=== PATIENT | female | born 1990 | race Caucasian/White ===

== ENCOUNTER 2018-02-25 16:57 | Outpatient (CLI) | payer MEDICAID ==
[2018-02-25 18:13] LABS: ADD UMIC YES; UR ASCORBIC ACID NEGATIVE (NEGATIVE); UR BILIRUBIN (Dip) NEGATIVE (NEGATIVE); UR BLOOD (Dip) 1+ mg/dL (NEGATIVE); UR CLARITY CLEAR (CLEAR); UR COLOR STRAW (YELLOW); UR GLUCOSE (Dip) NEGATIVE (NEGATIVE); UR KETONES (Dip) NEGATIVE (NEGATIVE); UR LEUKOCYTE ESTERASE (Dip) NEGATIVE Leu/ul (NEGATIVE); UR NITRITE (Dip) NEGATIVE (NEGATIVE); UR RBC 0 /HPF (0-5); UR SPECIFIC GRAVITY (Dip) 1.008 (1.003-1.030); UR TOTAL PROTEIN (Dip) NEGATIVE (NEGATIVE); UR UROBILINOGEN (Dip) NEGATIVE (NEGATIVE); UR WBC 0 /HPF (0-5)
== END 2018-02-25 20:05 | disposition home or self-care (01) ==
LOC: OBT 16:57 → L-D 17:01 → OBT 20:05
DX: O47.03 False labor before 37 completed weeks of gestation, third trimester (principal); O26.893 Other specified pregnancy related conditions, third trimester; R10.30 Lower abdominal pain, unspecified; Z3A.36 36 weeks gestation of pregnancy
CPT/HCPCS: 76818; 81001

== ENCOUNTER 2018-03-01 22:40 | Inpatient (IN) | payer MEDICAID ==
[2018-03-02] MEDS: LACTATED RINGER'S 1,000 ML IV ×4 (00:07→18:10)
[2018-03-02 01:23] LABS: ADD UMIC YES; UR ASCORBIC ACID NEGATIVE (NEGATIVE); UR BACTERIA FEW /HPF (NONE SEEN); UR BILIRUBIN (Dip) NEGATIVE (NEGATIVE); UR BLOOD (Dip) 1+ mg/dL (NEGATIVE); UR CLARITY SLIGHTLY CLOUDY (CLEAR); UR COLOR YELLOW (YELLOW); UR GLUCOSE (Dip) NEGATIVE (NEGATIVE); UR KETONES (Dip) NEGATIVE (NEGATIVE); UR LEUKOCYTE ESTERASE (Dip) 3+ Leu/ul (NEGATIVE); UR NITRITE (Dip) NEGATIVE (NEGATIVE); UR RBC 2 /HPF (0-5); UR SPECIFIC GRAVITY (Dip) 1.008 (1.003-1.030); UR SQUAMOUS EPITHELIAL CELL FEW /HPF (FEW); UR TOTAL PROTEIN (Dip) NEGATIVE (NEGATIVE); UR UROBILINOGEN (Dip) NEGATIVE (NEGATIVE); UR WBC 2 /HPF (0-5)
[2018-03-02] MEDS ORDERED: MISOPROSTOL 200 MCG TAB PR ×2 (03:00→18:30)
[2018-03-02] MEDS ORDERED: OXYTOCIN 30 UNITS/LR 500 ML IV ×2 (03:00→18:30)
[2018-03-02] MEDS ORDERED: CARBOPROST 250 MCG INJ IM ×2 (03:00→18:30)
[2018-03-02] MEDS ORDERED: METHYLERGONOVINE 0.2 MG INJ IM ×2 (03:00→18:30)
[2018-03-02 03:27] LABS: ADD MAN DIFF? NO
[2018-03-02 03:57] LABS: BASOPHIL # 0.1 10^3/ul (0.0-0.1); BASOPHILS % 0.7 % (0.0-2.0); EOSINOPHILS # 0.3 10^3/ul (0.0-0.5); EOSINOPHILS % 2.6 % (0.0-7.0); HEMATOCRIT 36.7 % (37.0-47.0); HEMOGLOBIN 12.5 g/dl (12.0-16.0); IMMATURE GRANS #M 0.05 10^3/ul; IMMATURE GRANS % (M) 0.4 %; LYMPHOCYTES % 17.3 % (15.0-51.0); MEAN CORPUSCULAR HEMOGLOBIN 29.7 pg (29.0-33.0); MEAN CORPUSCULAR HGB CONC 34.1 g/dl (32.0-37.0); MEAN CORPUSCULAR VOLUME 87.2 fl (82.0-101.0); MEAN PLATELET VOLUME 8.6 fl (7.4-10.4); MONOCYTE # 1.1 10^3/ul (0.3-0.9); MONOCYTES % 9.6 % (0.0-11.0); NEUTROPHILS % 69.4 % (39.0-77.0); PLATELET COUNT 382 10^3/UL (140-415); RED BLOOD COUNT 4.21 10^6/ul (4.20-5.40); RED CELL DISTRIBUTION WIDTH 12.9 % (11.5-14.5)
[2018-03-02 03:57] LABS: WHITE BLOOD COUNT 11.5 10^3/ul (4.8-10.8)
[2018-03-02] MEDS ORDERED: TERBUTALINE 1 MG/ML INJ SC (04:00)
[2018-03-02 04:05] LABS: INR 0.92; PROTIME 12.4 Sec (11.9-14.9)
[2018-03-02] MEDS ORDERED: TERBUTALINE 1 ML (04:05)
[2018-03-02 04:06] LABS: PARTIAL THROMBOPLASTIN TIME 31.5 Sec (25.0-35.0)
[2018-03-02] MEDS: TERBUTALINE 1 MG/ML INJ SC (04:16)
[2018-03-02 04:34] LABS: HEPATITIS B SURFACE ANTIGEN NEGATIVE (NEGATIVE)
[2018-03-02 10:59] LABS: RAPID PLASMA REAGIN NONREACTIVE (NR)
[2018-03-02] MEDS: IBUPROFEN 600 MG TAB PO ×2 (12:00→18:00)
[2018-03-02] MEDS ORDERED: BUPIVACAINE 0.75%/DEXT (SPINAL) 2 ML INJ (12:40)
[2018-03-02] MEDS ORDERED: morphine SULFATE/PF (10 MG/10 ML) INJ (12:40)
[2018-03-02] MEDS ORDERED: PHENYLephrine (100 MCG/ML) 5ML SYG (13:08)
[2018-03-02] MEDS ORDERED: FENTAnyl 50 MCG/ML VIAL (13:16)
[2018-03-02] MEDS ORDERED: NALOXONE (0.4 MG/ML) INJ IV (14:30)
[2018-03-02] MEDS ORDERED: FENTAnyl 50 MCG/ML VIAL IV ×2 (14:30)
[2018-03-02] MEDS ORDERED: METOCLOPRAMIDE 10 MG INJ IV (14:30)
[2018-03-02] MEDS ORDERED: HYDROmorphONE 0.5 MG/0.5 ML SYG IV ×2 (14:30)
[2018-03-02] MEDS ORDERED: HYDROmorphONE 1 MG/5 ML IV SYRINGE IV ×3 (14:30)
[2018-03-02] MEDS ORDERED: DIPHENHYDRAMINE 50 MG INJ IV ×2 (14:30)
[2018-03-02] MEDS ORDERED: ONDANSETRON 4 MG INJ IV ×2 (14:30)
[2018-03-02] MEDS: CEFAZOLIN 2 GM/50 ML (PMX) 50 ML IV (14:32)
[2018-03-02] MEDS: OXYTOCIN 30 UNITS/LR 500 ML IV ×2 (14:40→18:04)
[2018-03-02] MEDS: KETOROLAC 30 MG INJ IV ×2 (15:06→23:28)
[2018-03-03 06:45] LABS: ADD MAN DIFF? NO
[2018-03-03 06:47] LABS: BASOPHIL # 0.1 10^3/ul (0.0-0.1); BASOPHILS % 0.6 % (0.0-2.0); EOSINOPHILS # 0.2 10^3/ul (0.0-0.5); EOSINOPHILS % 1.4 % (0.0-7.0); HEMATOCRIT 30.8 % (37.0-47.0); HEMOGLOBIN 10.4 g/dl (12.0-16.0); IMMATURE GRANS #M 0.05 10^3/ul; IMMATURE GRANS % (M) 0.4 %; LYMPHOCYTES # 1.9 10^3/ul (0.8-2.9); LYMPHOCYTES % 15.7 % (15.0-51.0); MEAN CORPUSCULAR HEMOGLOBIN 28.9 pg (29.0-33.0); MEAN CORPUSCULAR HGB CONC 33.8 g/dl (32.0-37.0); MEAN CORPUSCULAR VOLUME 85.6 fl (82.0-101.0); MEAN PLATELET VOLUME 8.2 fl (7.4-10.4); MONOCYTE # 1.1 10^3/ul (0.3-0.9); MONOCYTES % 9.1 % (0.0-11.0); NEUTROPHIL # 8.8 10^3/ul (1.6-7.5); NEUTROPHILS % 72.8 % (39.0-77.0); PLATELET COUNT 252 10^3/UL (140-415)
[2018-03-03 06:47] LABS: WHITE BLOOD COUNT 12.1 10^3/ul (4.8-10.8)
[2018-03-03] MEDS: KETOROLAC 30 MG INJ IV (13:00)
[2018-03-03] MEDS: FERROUS SULFATE (EC) 325 MG TAB PO (21:22)
[2018-03-03] MEDS: IBUPROFEN 600 MG TAB PO (23:22)
[2018-03-04] MEDS: OXYCODONE/ACETAMINOPHEN (5/325) TAB PO (02:50)
[2018-03-04] MEDS: IBUPROFEN 600 MG TAB PO ×3 (05:14→18:15)
[2018-03-04] MEDS: FERROUS SULFATE (EC) 325 MG TAB PO ×2 (09:19→21:20)
[2018-03-05] MEDS: IBUPROFEN 600 MG TAB PO ×3 (00:03→11:23)
[2018-03-05] MEDS: FERROUS SULFATE (EC) 325 MG TAB PO (08:23)
[2018-03-05] MEDS: DIPHTH/TET/ACEL PERTUSS (ADULT) 0.5 ML VIAL IM* (09:00)
== END 2018-03-05 17:15 | disposition home or self-care (01) | DRG 766 ==
LOC: OBT 22:40 → L-D 22:41 → PP1 03-02 16:54
PROC: 10D00Z1 Extraction of Products of Conception, Low, Open Approach (ICD-10-PCS; principal; 2018-03-02)
PROC: 0UB70ZZ Excision of Bilateral Fallopian Tubes, Open Approach (ICD-10-PCS; 2018-03-02)
PROC: 4A1HXCZ Monitoring of Products of Conception, Cardiac Rate, External Approach (ICD-10-PCS; 2018-03-02)
DX: O34.219 Maternal care for unspecified type scar from previous cesarean delivery (principal); O76 Abnormality in fetal heart rate and rhythm complicating labor and delivery; Z3A.37 37 weeks gestation of pregnancy; Z37.0 Single live birth; Z30.2 Encounter for sterilization
CPT/HCPCS: 36415; 76818; 81001; 85025; 85610; 85730; 86592; 86850; 86900; 86901; 87340; 88302; 90715; 96360; 96361; 96372; 99464

== ENCOUNTER 2018-10-15 22:05 | Emergency (ER) | payer SELFPAY, OTHER, MEDICAID ==
[2018-10-16] MEDS: KETOROLAC 15 MG INJ IM (03:28)
[2018-10-16] MEDS: BACITRACIN 0.9 GM OINT TOP (03:30)
== END 2018-10-16 04:04 | disposition home or self-care (01) ==
LOC: E/R 22:05
DX: T24.332D Burn of third degree of left lower leg, subsequent encounter (principal); X19.XXXD Contact with other heat and hot substances, subsequent encounter
CPT/HCPCS: 81025; 96372; 99284-25